=== PATIENT | male | born 1995 | race Caucasian/White ===

== ENCOUNTER 2021-02-10 21:12 | Emergency (ER) | payer MEDICAID ==
[~2021-02-10] VITALS: Ht 172.7 cm; Wt 98.0 kg
[2021-02-10] MEDS ORDERED: ACETAMINOPHEN 325MG TABLET PO ONE (22:30)
[2021-02-11] MEDS ORDERED: ACET-2708 MT (00:10)
[2021-02-11 00:12] VITALS: BP 103/64
[2021-02-11] MEDS ORDERED: TETANUS, DIPHTHERIA, PERTUSSIS VAC/PF 0.5ML (>7YR OLD) IM ONE (01:00)
== END 2021-02-11 01:59 | disposition home or self-care (01) ==
LOC: ER 21:12
DX: S00.01XA Abrasion of scalp, initial encounter (principal); S16.1XXA Strain of muscle, fascia and tendon at neck level, initial encounter; S00.83XA Contusion of other part of head, initial encounter; J45.909 Unspecified asthma, uncomplicated; Z90.49 Acquired absence of other specified parts of digestive tract; Z88.0 Allergy status to penicillin; Y04.0XXA Assault by unarmed brawl or fight, initial encounter; Y07.410 Brother, perpetrator of maltreatment and neglect; Y93.89 Activity, other specified; Y92.018 Other place in single-family (private) house as the place of occurrence of the external cause
CPT/HCPCS: 90471; 90715; 99283